=== PATIENT | female | born 1955 | race Hispanic/Latino ===

== ENCOUNTER 2019-03-16 13:53 | Emergency (ER) | payer SELFPAY ==
[~2019-03-16] VITALS: Ht 167.6 cm; Wt 80.8 kg
[2019-03-16] MEDS ORDERED: SODIUM CHLORIDE 0.9% 1000ML 1,000 ML IV SCH (14:30)
--- NOTE | 2019-03-16 15:17 | Diagnostic Imaging Report ---
EXAM: CXR 2 VIEW - HOPD DATE: 03/16/2019 12:00 AM INDICATION: Fever/pain COMPARISON: None FINDINGS: The trachea is midline. The lungs are symmetrically expanded without evidence for focal consolidation, pneumothorax, or significant pleural effusion. The cardiomediastinal silhouette and pulmonary vasculature are within normal limits. No acute osseous abnormalities identified. IMPRESSION: No acute cardio pulmonary process identified. Signed by: Dr. Jose Landers MD on 03/16/2019 3:13 PM
--- OUTSIDE RECORDS SUMMARY | 2019-03-16 15:23 | XMS REPORT ---
Author Author [facility] Address Unknown Phone Unavailable Care Team Providers Care Supply Technician Name Role Phone Asia SOOD Unavailable Unavailable Problems This patient has no known problems. Allergies, Adverse Reactions, Alerts This patient has no known allergies or adverse reactions. Medications This patient has no known medications. Encounters Start Date/Time End Date/Time Encounter Type Admission Type Attending [facility] Care Department Encounter ID 2019-03-16 00:00:00 2019-03-16 00:00:00 Outpatient [facility] [id number] 2019-03-15 11:41:19 2019-03-15 11:41:19 Outpatient [facility] [id number] 2019-03-04 10:16:53 2019-03-04 10:16:53 Outpatient [facility] [id number] 2019-02-25 10:13:16 2019-02-25 10:13:16 Outpatient [facility] [id number] 2019-01-19 10:07:25 2019-01-19 10:07:25 Outpatient [facility] [id number] 2018-12-16 09:45:48 2018-12-16 09:45:48 Outpatient [facility] [id number] 2018-11-24 08:55:40 2018-11-24 08:55:40 Outpatient [facility] [id number] 2018-09-30 14:08:57 2018-09-30 14:08:57 Outpatient [facility] [id number] 2018-09-17 07:55:48 2018-09-17 07:55:48 Outpatient [facility] [id number] 2018-08-12 09:58:43 2018-08-12 09:58:43 Outpatient [facility] [id number] 2018-08-06 09:46:16 2018-08-06 09:46:16 Outpatient [facility] [id number] 2018-07-20 00:00:00 2018-07-20 00:00:00 Outpatient [facility] [id number] 2018-07-17 11:16:45 2018-07-17 11:16:45 Outpatient [facility] [id number] 2018-07-15 15:27:09 2018-07-15 15:27:09 Outpatient [facility] [id number] 2018-07-09 08:42:01 2018-07-09 08:42:01 Outpatient [facility] [id number] 2018-07-02 00:00:00 2018-07-02 00:00:00 Outpatient [facility] [id number] 2018-07-02 00:00:00 2018-07-02 00:00:00 Outpatient [facility] [id number] 2018-06-30 00:00:00 2018-06-30 00:00:00 Outpatient [facility] [id number] 2018-06-19 07:55:51 2018-06-19 07:55:51 Outpatient [facility] [id number] 2018-06-19 00:00:00 2018-06-19 00:00:00 Outpatient [facility] [id number] 2018-06-04 10:03:52 2018-06-04 10:03:52 Outpatient [facility] [id number] 2018-06-04 10:02:50 2018-06-04 10:02:50 Outpatient [facility] [id number] 2018-06-03 11:13:20 2018-06-03 11:13:20 Outpatient [facility] [id number] 2018-06-02 08:07:07 2018-06-02 08:07:07 Outpatient [facility] [id number] 2018-05-13 15:39:09 2018-05-13 15:39:09 Outpatient [facility] [id number] 2018-04-01 09:31:06 2018-04-01 09:31:06 Outpatient [facility] [id number] 2018-03-27 09:04:44 2018-03-27 09:04:44 Outpatient [facility] [id number] 2018-03-19 09:04:19 2018-03-19 09:04:19 Outpatient [facility] [id number] 2018-03-18 10:10:30 2018-03-18 10:10:30 Outpatient [facility] [id number] 2018-03-17 15:24:59 2018-03-17 15:24:59 Outpatient [facility] [id number] 2018-03-16 00:00:00 2018-03-16 00:00:00 Outpatient [facility] [id number] 2018-03-05 16:00:01 2018-03-05 16:00:01 Outpatient [facility] [id number] 2018-03-05 00:00:00 2018-03-05 00:00:00 Outpatient [facility] [id number] 2018-02-12 13:14:08 2018-02-12 13:14:08 Outpatient [facility] [id number] 2018-01-28 13:50:32 2018-01-28 13:50:32 Outpatient [facility] [id number] 2018-01-23 10:03:56 2018-01-23 10:03:56 Outpatient [facility] [id number] 2017-12-30 10:24:22 2017-12-30 10:24:22 Outpatient [facility] [id number] 2017-12-18 00:00:00 2017-12-18 00:00:00 Outpatient [facility] [id number] 2017-12-11 10:15:09 2017-12-11 10:15:09 Outpatient [facility] [id number] 2017-12-10 08:36:00 2017-12-10 08:36:00 Outpatient [facility] [id number] 2017-11-03 00:00:00 2017-11-03 00:00:00 Outpatient [facility] [id number] 2017-10-29 09:42:08 2017-10-29 09:42:08 Outpatient [facility] [id number] 2017-09-19 11:36:52 2017-09-19 11:36:52 Outpatient [facility] [id number] 2017-09-03 11:31:42 2017-09-03 11:31:42 Outpatient [facility] [id number] 2017-09-03 10:22:14 2017-09-03 10:22:14 Outpatient [facility] [id number] 2017-07-24 08:31:16 2017-07-24 08:31:16 Outpatient [facility] [id number] 2017-07-02 09:03:42 2017-07-02 09:03:42 Outpatient [facility] [id number] 2017-05-28 17:18:46 2017-05-28 17:18:46 Outpatient [facility] [id number] 2017-05-26 13:58:54 2017-05-26 13:58:54 Outpatient [facility] [id number] 2017-05-26 12:31:53 2017-05-26 12:31:53 Outpatient [facility] [id number] 2017-05-19 00:00:00 2017-05-19 00:00:00 Outpatient [facility] [id number] 2017-01-24 16:21:21 2017-01-24 16:21:21 Outpatient [facility] [id number] 2017-01-24 02:09:00 2017-01-24 02:09:00 Emergency [facility] [id number] 2017-01-09 00:00:00 2017-01-09 00:00:00 Outpatient [facility] [id number] 2016-12-10 10:58:47 2016-12-10 10:58:47 Outpatient [facility] [id number] 2016-12-10 08:13:31 2016-12-10 08:13:31 Outpatient [facility] [id number] Results Test Description Test Time Test Comments Text Results Atomic Results Result Comments CXR 2 VIEW - [facility]OPD 2019-03-16 15:13:00 [place] [id number] Patient Name: MALIK RAMIREZ MR #: [id number] : 1955 Age/Sex: 64/F Req #: [id number] Adm Physician: Ordered by: ADI SOOD MD Report #: [id number] Location: [facility] Room/Bed: Procedure: [id number] HOPD/CXR 2 VIEW - [facility] Exam Date: 03/16/19 Exam Time: 1500 REPORT STATUS: Signed EXAM: CXR 2 VIEW - [facility] DATE: 03/16/2019 12:00 AM INDICATION: Fever/pain COMPARISON: None FINDINGS: The trachea is midline. The lungs are symmetrically expanded without evidence for focal consolidation, pneumothorax, or significant pleural effusion. The cardiomediastinal silhouette and pulmonary vasculature are within normal limits. No acute osseous abnormalities identified. IMPRESSION: No acute cardio pulmonary process identified. Signed by: Dr. Jose Rivers MD on 03/16/2019 3:13 PM Dictated By: JOSE RIVERS MD [id number] Transcribed By: ESTRADA on 03/16/19 0175 COPY TO: ADI SOOD MD
--- NOTE | 2019-03-16 15:29 | Diagnostic Imaging Report ---
CT of the abdomen and pelvis, with contrast. History: Abdominal pain. Comparison: None available. Technique: Multidetector CT scanning of the abdomen and pelvis was performed from the level of the lung bases to the inferior pubic rami without intravenous or oral contrast. Coronal and sagittal multiplanar reformations were obtained. RADIATION DOSE: Total DLP: 764.38 mGy*cm Dose modulation, iterative reconstruction, and/or weight based adjustment of the mA/kV was utilized to reduce the radiation dose to as low as reasonably achievable. Discussion: There is mild bibasilar atelectasis/scarring present. The imaged portion of the heart demonstrates no significant abnormalities. The liver is diffusely decreased in attenuation which can be seen in the setting of hepatic steatosis. Areas of focal fatty sparing noted adjacent to the gallbladder. The gallbladder appears unremarkable. There is no biliary ductal dilatation. There is a small hiatal hernia present. The stomach is otherwise unremarkable. The spleen, pancreas, and bilateral adrenal glands demonstrate unremarkable noncontrast appearance. The kidneys are normal in size and location. There is no evidence for nephrolithiasis or hydronephrosis. The ureters are normal course and caliber. The urinary bladder is nondistended but appears grossly unremarkable. The uterus is surgically absent. No abnormal adnexal mass is identified. The abdominal aorta is normal in course and caliber. The IVC is normal in caliber. Please note that evaluation of the bowel is limited without the use of enteric contrast material. The visualized loops of small and large bowel demonstrate no evidence of obstruction or inflammation. There is no ascites or intraperitoneal free air. No abnormally enlarged lymph nodes are identified within the abdomen or pelvis. The osseous structures demonstrate no evidence for acute fracture or destructive process. The extraperitoneal soft tissues are unremarkable. IMPRESSION: No acute abdominopelvic process identified. CT findings suggestive of hepatic steatosis. Signed by: Dr. Jose Landers MD on 03/16/2019 3:25 PM
[2019-03-16] MEDS ORDERED: TESSALON PERLE100 MG PO (15:53)
[2019-03-16] MEDS ORDERED: SIMVASTATIN20 MG PO (16:02)
[2019-03-16] MEDS ORDERED: LISINOPRIL2.5 MG PO (16:02)
[2019-03-16 16:12] VITALS: BP 144/75
== END 2019-03-16 16:12 | disposition home or self-care (01) ==
LOC: FSED 13:53
DX: R50.9 Fever, unspecified (principal); R05 Cough; J02.9 Acute pharyngitis, unspecified; R51 Headache; R31.29 Other microscopic hematuria; R10.31 Right lower quadrant pain
CPT/HCPCS: 71046; 74176; 80053; 80307; 83518; 83605; 85025; 99283

== ENCOUNTER 2021-07-29 15:41 | Emergency (ER) | payer OTHER ==
[~2021-07-29] VITALS: Ht 167.6 cm; Wt 80.7 kg
[~2021-07-29 15:41] MED LIST: LISINOPRIL2.5 MG PO; SIMVASTATIN20 MG PO; TESSALON PERLE100 MG PO
[2021-07-29] MEDS ORDERED: SODIUM CHLORIDE 0.9% 1000ML 1,000 ML IV STA (16:03)
[2021-07-29 16:20] LABS: BASOPHILS # (AUTO) 0.1 (0.0-0.1); BASOPHILS % 0.6 % (0.0-1.0); EOSINOPHILS # (AUTO) 0.2 (0.0-0.4); HEMATOCRIT 39.8 % (34.2-44.1); HEMOGLOBIN 12.6 g/dL (12.0-16.0); LYMPHOCYTES # (AUTO) 3.2 (1.0-3.2); LYMPHOCYTES % 36.6 % (18.0-39.1); MEAN CORPUSCULAR HEMOGLOBIN 28.2 pg (28-32); MEAN CORPUSCULAR HGB CONC 31.7 g/dL (31-35); MONOCYTES # (AUTO) 0.8 (0.2-0.8); NEUTROPHILS # (AUTO) 4.5 (2.1-6.9); NEUTROPHILS % 51.5 % (38.7-80.0); PLATELET COUNT 307 x10e3/uL (140-360); RED BLOOD COUNT 4.47 x10e6/uL (3.6-5.1); RED CELL DISTRIBUTION WIDTH 13.2 % (11.7-14.4)
[2021-07-29 16:34] LABS: CLARITY,URINE CLEAR (CLEAR); COLOR,URINE YELLOW (YELLOW); LEUKOCYTE ESTERASE ,URINE NEGATIVE (NEGATIVE); NITRITE,URINE NEGATIVE (NEGATIVE); PROTEIN,URINE DIPSTICK NEGATIVE (NEGATIVE)
[2021-07-29 16:35] LABS: KETONES,URINE NEGATIVE (NEGATIVE); URINE UROBILINOGEN 0.2 mg/dL (0.2 - 1)
[2021-07-29 16:39] LABS: ALBUMIN/GLOBULIN RATIO 1.2 (0.8-2.0); BACTERIA,URINE RARE /HPF; CALCIUM 9.3 mg/dL (8.4-10.2); CREATININE, SERUM 0.72 mg/dL (0.57-1.11); EPITHELIAL CELLS,URINE RARE /LPF; RBC,URINE 0-5 /HPF (0-5)
[2021-07-29 18:04] VITALS: BP 142/80
[2021-07-29] MEDS ORDERED: SODIUM CHLORIDE 0.9% 50ML 50 ML ONE (18:33)
[2021-07-29] MEDS ORDERED: IOPAMIDOL 370 MG/ML 200 ML INFUS..BTL INJ ONE (18:33)
== END 2021-07-29 18:07 | disposition home or self-care (01) ==
LOC: ER 17:23
DX: R10.31 Right lower quadrant pain (principal); N39.0 Urinary tract infection, site not specified; R11.0 Nausea; K57.30 Diverticulosis of large intestine without perforation or abscess without bleeding; I10 Essential (primary) hypertension; E78.5 Hyperlipidemia, unspecified
CPT/HCPCS: 36415; 74177; 80053; 81001; 83690; 85025; 99284; J7030; Q9967